=== PATIENT | female | born 1990 | race Caucasian/White ===

== ENCOUNTER 2017-07-16 13:50 | Emergency (ER) | payer MEDICAID ==
[~2017-07-16] VITALS: Ht 154.9 cm; Wt 81.0 kg
[2017-07-16 13:54] VITALS: BP 112/80
[2017-07-16] MEDS ORDERED: CEFTRIAXONE 250 MG IM ONE (14:30)
[2017-07-16] MEDS ORDERED: AZITHROMYCIN 500 MG TABLET PO ONE (14:30)
[2017-07-16] MEDS ORDERED: AZITHROMYCIN 250 MG TABLET ONE (14:35)
[2017-07-16] MEDS ORDERED: CEFTRIAXONE 250 MG ONE (14:35)
[2017-07-16 15:53] LABS: CULTURE INDICATED? YES; MICROSCOPIC INDICATED
== END 2017-07-16 15:32 | disposition home or self-care (01) ==
LOC: ED 15:20
DX: A56.01 Chlamydial cystitis and urethritis (principal); A54.01 Gonococcal cystitis and urethritis, unspecified; F17.210 Nicotine dependence, cigarettes, uncomplicated
CPT/HCPCS: 81001; 87086; 87491; 87591; 96372; 99284; J0696; 87186